=== PATIENT | male | born 1945 | race American Indian/Alaskan Native ===

== ENCOUNTER 2018-12-13 02:10 | Emergency (ER) | payer MEDICARE ==
[2018-12-13] MEDS ORDERED: NACL 0.9% 1000 ML 1,000 ML IV ONE (03:08)
[2018-12-13 03:22] LABS: Basophils # (Auto) 0.1 K/mm3 (0.0-0.1); Basophils % (Auto) 0.9 % (0.0-1.8); Eosinophils % (Auto) 0.2 % (0.0-4.3); Hematocrit 39.6 % (35.5-45.6); Hemoglobin 13.4 gm/dl (11.8-15.2); Lymphocytes # (Auto) 1.5 K/mm3 (1.2-5.4); Lymphocytes % (Auto) 20.8 % (13.4-35.0); Mean Corpuscular HGB Conc 34 % (32-34); Mean Corpuscular Hemoglobin 27 pg (28-32); Mean Corpuscular Volume 79 fl (84-94); Monocytes # (Auto) 0.4 K/mm3 (0.0-0.8); Monocytes % (Auto) 5.6 % (0.0-7.3); Platelet Count 194 K/mm3 (140-440); Red Blood Count 5.01 M/mm3 (3.65-5.03)
--- NOTE | 2018-12-13 03:33 | Emergency Department Report ---
ED General Adult HPI - General Chief complaint: Weakness Stated complaint: WEAKNESS Time Seen by Provider: 12/13/18 03:08 Source: patient, EMS Mode of arrival: Stretcher Limitations: No Limitations - History of Present Illness Initial comments: 73-year-old male with a history of hypertension, prostate cancer and hyperlipidemia presents after having complained generalized weakness. Patient has had multiple visits to the ER and outside hospitals for weakness. Patient had had weakness undergone a 4 month. Patient was admitted at an outside hospital in November 23 for bilateral upper and lower extremity weakness and was discharged. Patient states that he was given follow-up [facility] as an outpatient and they are concerned for possible multiple myeloma but this is formally diagnosed. Patient states that he has been having generalized fatigue since September 2018. Patient complains of severe weakness in his knees and elbow joints. Patient complains of profuse sweating on doing simple tasks. Patient however denies any chest pain shortness were current time. Patient denies any abdominal pain or vomiting. Patient denies any focal weakness or slurred speech. Severity scale (0 -10): 0 - Related Data Home Medications Medication Instructions Recorded Confirmed Last Taken Colace CAP 100 mg PO DAILY PRN 12/13/18 12/13/18 Unknown Crestor 5 mg PO DAILY 12/13/18 12/13/18 Unknown Flomax 0.4 mg PO DAILY 12/13/18 12/13/18 12/12/18 Lisinopril 10 mg PO DAILY 12/13/18 12/13/18 12/12/18 Metoprolol 50 mg PO DAILY 12/13/18 12/13/18 Unknown NexIUM 40 mg PO DAILY 12/13/18 12/13/18 Unknown Allergies Allergy/AdvReac Type Severity Reaction Status Date / Time codeine Allergy Unknown Verified 12/13/18 03:02 Penicillins Allergy Unknown Verified 12/13/18 03:02 ED Review of Systems ROS: Stated complaint: WEAKNESS Other details as noted in HPI Constitutional: denies: chills, fever Eyes: denies: eye pain, eye discharge, vision change ENT: denies: ear pain, throat pain Respiratory: denies: cough, shortness of breath, wheezing Cardiovascular: denies: chest pain, palpitations Endocrine: no symptoms reported Gastrointestinal: denies: abdominal pain, nausea, diarrhea Genitourinary: denies: urgency, dysuria Musculoskeletal: denies: back pain, joint swelling, arthralgia Skin: denies: rash, lesions Neurological: weakness. denies: headache, paresthesias Psychiatric: denies: anxiety, depression Hematological/Lymphatic: denies: easy bleeding, easy bruising ED Past Medical Hx - Past Medical History Hx Hypertension: Yes Hx GERD: Yes Hx Renal Disease: Yes Additional medical history: Prostate, Anemia, syncope, High cholesterol - Surgical History Additional Surgical History: cyst removal from chest (2010) - Social History Smoking Status: Never Smoker Substance Use Type: None - Medications Home Medications: Home Medications Medication Instructions Recorded Confirmed Last Taken Type Colace CAP 100 mg PO DAILY PRN 12/13/18 12/13/18 Unknown History Crestor 5 mg PO DAILY 12/13/18 12/13/18 Unknown History Flomax 0.4 mg PO DAILY 12/13/18 12/13/18 12/12/18 History Lisinopril 10 mg PO DAILY 12/13/18 12/13/18 12/12/18 History Metoprolol 50 mg PO DAILY 12/13/18 12/13/18 Unknown History NexIUM 40 mg PO DAILY 12/13/18 12/13/18 Unknown History ED Physical Exam - General Limitations: No Limitations General appearance: alert, in no apparent distress - Head Head exam: Present: atraumatic, normocephalic - Eye Eye exam: Present: normal appearance - ENT ENT exam: Present: mucous membranes moist - Neck Neck exam: Present: normal inspection - Respiratory Respiratory exam: Present: normal lung sounds bilaterally. Absent: respiratory distress - Cardiovascular Cardiovascular Exam: Present: regular rate, normal rhythm. Absent: systolic murmur, diastolic murmur, rubs, gallop - GI/Abdominal GI/Abdominal exam: Present: soft, normal bowel sounds - Rectal Rectal exam: Present: deferred - Extremities Exam Extremities exam: Present: normal inspection - Back Exam Back exam: Present: normal inspection - Neurological Exam Neurological exam: Present: alert, oriented X3, CN II-XII intact. Absent: motor sensory deficit - Psychiatric Psychiatric exam: Present: normal affect, normal mood - Skin Skin exam: Present: warm, dry, intact, normal color. Absent: rash ED Course Vital Signs 12/13/18 12/13/18 12/13/18 02:44 02:45 03:01 Temperature 98.7 F Pulse Rate 75 66 Respiratory 28 H 20 Rate Blood Pressure 174/72 Blood Pressure 157/71 [Left] O2 Sat by Pulse 100 100 100 Oximetry 12/13/18 12/13/18 12/13/18 03:45 04:01 04:15 Temperature Pulse Rate 64 73 88 Respiratory 22 21 18 Rate Blood Pressure 157/71 157/71 157/71 Blood Pressure [Left] O2 Sat by Pulse 99 99 99 Oximetry 12/13/18 12/13/18 12/13/18 04:30 04:45 05:01 Temperature Pulse Rate 61 73 69 Respiratory 14 21 15 Rate Blood Pressure 148/56 148/56 148/56 Blood Pressure [Left] O2 Sat by Pulse 100 100 100 Oximetry 12/13/18 05:15 Temperature Pulse Rate 66 Respiratory 13 Rate Blood Pressure 148/56 Blood Pressure [Left] O2 Sat by Pulse 100 Oximetry ED Medical Decision Making - Lab Data Result diagrams: 12/13/18 03:00 12/13/18 03:00 - EKG Data -: EKG Interpreted by Nd EKG shows normal: sinus rhythm Rate: normal - EKG Data Interpretation: no acute changes - Medical Decision Making Patient received 1 L normal saline while here in the department. Patient has no evidence of end organ injury. Patient sitting upright comfortable appears no acute distress. Patient to be discharged to continue his outpatient workup with MRI as an outpatient. - Differential Diagnosis dehydration; anemia; electrolyte abnormality; arrhythmia Critical care attestation.: If time is entered above; I have spent that time in minutes in the direct care of this critically ill patient, excluding procedure time. ED Disposition Clinical Impression: Weakness Disposition: DC-01 TO HOME OR SELFCARE Is pt being admited?: No Does the pt Need Aspirin: No Condition: Stable Instructions: Weakness (ED) Referrals: PRIMARY CARE [Primary Care Provider] - 3-5 Days Time of Disposition: 05:15 Print Language: [place]
--- NOTE | 2018-12-13 04:08 | XRay Report ---
CHEST 1 VIEW 12/13/2018 3:21 AM INDICATION / CLINICAL INFORMATION: Weakness. COMPARISON: None available. FINDINGS: SUPPORT DEVICES: None. HEART / MEDIASTINUM: No significant abnormality. LUNGS / PLEURA: No significant pulmonary or pleural abnormality. No pneumothorax. ADDITIONAL FINDINGS: No significant additional findings. IMPRESSION: No acute findings. Signer Name: Bryan Moran MD Signed: 12/13/2018 4:03 AM Workstation Name: [id number]
[2018-12-13 04:35] LABS: Alanine Aminotransferase 12 units/L (7-56); Albumin 4.3 g/dL (3.9-5); BUN/Creatinine Ratio 11; Blood Urea Nitrogen 14 mg/dL (9-20); Calcium 10.2 mg/dL (8.4-10.2); Hemolysis Index 8
[2018-12-13 04:51] LABS: Bilirubin,Urine NEG (Negative); Blood,Urine SM (Negative); Color,Urine Straw (Yellow); Mucus,Urine FEW /HPF; Protein,Urine <15 mg/dL mg/dL (Negative); Urobilinogen,Urine < 2.0 mg/dL (<2.0)
[2018-12-13 05:21] VITALS: BP 148/56
== END 2018-12-13 06:29 | disposition home or self-care (01) ==
LOC: ED 02:10
DX: R53.1 Weakness (principal); R61 Generalized hyperhidrosis; I10 Essential (primary) hypertension; K21.0 Gastro-esophageal reflux disease with esophagitis; E78.00 Pure hypercholesterolemia, unspecified; Z98.890 Other specified postprocedural states; Z88.6 Allergy status to analgesic agent; Z88.0 Allergy status to penicillin; Z79.899 Other long term (current) drug therapy
CPT/HCPCS: 36415; 71045; 80053; 81001; 82550; 83735; 84484; 85025; 93005; 93010; 99284; J7030